=== PATIENT | female | born 1980 | race Caucasian/White ===

== ENCOUNTER 2023-09-27 09:11 | Outpatient (CLI) | payer OTHER, SELFPAY | END 2023-09-27 09:12 | disposition home or self-care (01) | LOC: NFLDREF 09:12 | PROVIDERS: PCP Family Medicine; Visit Provider Obstetrics & Gynecology | DX: R39.15 Urgency of urination (principal) | CPT/HCPCS: 87086 ==

== ENCOUNTER 2024-04-22 08:45 | Inpatient (IN) | payer BC, SELFPAY ==
[2024-04-22] VITALS (18 sets, daily range): BP systolic 118–161; BP diastolic 62–97; PULSE 51–71; RESP 16–24; TEMP 36.5–37.3; O2SAT 92–99; BMI 42.4
[2024-04-22 09:23] LABS: Ur HCG Qualitative* Negative (Negative)
[2024-04-22] MEDS: LACTATED RINGERS 1000 ML 1,000 ML 100 ML IV ×2 (09:35→13:48)
[2024-04-22] MEDS: SODIUM CHLORIDE 0.9 % (FLUSH) 10 ML SYRINGE IVF (09:35)
[2024-04-22] MEDS: PHENAZOPYRIDINE HCL 200 MG TABLET PO (09:55)
[2024-04-22 10:12] LABS: Creatinine* 0.5 mg/dL (0.5-1.5); Est. Creatinine Clearance* 135.81; Estimated Glomerular Filt Rate 119 ml/min
[2024-04-22] MEDS: CEFAZOLIN 1 GM inj 3 GM IVP (11:32)
--- NOTE | 2024-04-22 11:46 | W.PM.NB ---
Nerve Block Nerve Block Time Seen by Provider: 11:11 Date Seen: 04/22/24 Type of block requested by surgeon for post-operative analgesia: TAP Side: bilateral Time out performed: Yes Verification of patient name: Yes Verification of date of : Yes Site marking: site marked Name of person performing procedure: David Continuous monitoring Was continuous monitoring of O2 sat, B/P, cardiac exercise specialist, recorded every 15 minutes?: Yes Procedure Checklist: sterile prep, needles and gloves Ultrasound guided. Images saved: Yes Medications given in 5ml increments after negative aspiration: Marcaine %: 0.25 mL: 30 Needle gauge: 20 and Exparel mL: 10 Patient tolerated procedure well: Yes Additional comments: Needle noted between internal oblique and transversus abdominus. Local spread visualized Block Charges Block Charge (with Pro Fee): TAP Bilateral Use of Ultrasound Machine for Block: Yes- US Guidance/pain block
[2024-04-22] MEDS: VASOPRESSIN 20 UNIT/ML INJ INJECTION (12:33)
[2024-04-22 13:27] LABS: Hemoglobin* 13.7 gm/dL (12.0-16.0)
--- NOTE | 2024-04-22 14:50 | P.GYNPRC_ITS ---
Procedure Note Date of procedure: 04/22/24 Will [facility] bill your pro fee for this procedure?: Yes Procedure Description: PREOPERATIVE DIAGNOSIS: Abnormal uterine bleeding, obesity, myomatous uterus POSTOPERATIVE DIAGNOSIS: Same PROCEDURE: Total abdominal hysterectomy, lysis of adhesions, bilateral salpingectomies, diagnostic cystoscopy SURGEON: Dr. Mulligan [employer]ILD[employer] ATTENDANT: Dr. Ramos ANESTHESIA: General endotracheal COMPLICATIONS: None ESTIMATED BLOOD LOSS: See operative report by Dr. Mulligan FINDINGS: Enlarged myomatous uterus, weight 822 g. PROCEDURE NOTE: Please see the operative report by Dr. Mulligan for full details of the procedure. I was asked to assist. I was scrubbed in for the entire procedure until closure of the abdominal incision. I provided assistance with the laparotomy, lysis of adhesions, visualization and retraction, and with the hysterectomy and bilateral salpingectomies from the right side, as well as with hemostasis and closure of the vaginal cuff.
--- NOTE | 2024-04-22 15:08 | W.ANESCHARGE ---
Anesthesia Charges Start Date/Time Anesthesia Start Date: 04/22/24 Anesthesia Start Time: 11:01 Stop Date/Time Anesthesia Stop Date: 04/22/24 Anesthesia Stop Time: 15:02
[2024-04-22] MEDS: MEPERIDINE 25 MG/ML INJ 12.5 MG IVP (15:16)
--- NOTE | 2024-04-22 15:17 | W.ANESCHARGE ---
Anesthesia Charges Start Date/Time Anesthesia Start Date: 04/22/24 Anesthesia Start Time: 11:01 Stop Date/Time Anesthesia Stop Date: 04/22/24 Anesthesia Stop Time: 15:02
[2024-04-22] MEDS: LACTATED RINGERS 1000 ML 1,000 ML 30 ML IV (15:26)
--- NOTE | 2024-04-22 15:35 | W.PM.GYNPROC ---
Procedure Note Time Seen by Provider: 14:30 Date of procedure: 04/22/24 Will [facility] bill your pro fee for this procedure?: Yes Pre-op diagnosis: Fibroid uterus Abnormal Uterine Bleeding Procedure: Total Abdominal Hysterectomy Bilateral salpingectomy Lysis of adhesions Diagnostic cystoscopy Anesthesia: GETA Complications: None Surgeon: Shaila Mulligan MD Spinner Hydraulic: Malinda Ramos Estimated blood loss (mL): 150 IV fluids (mL): 1,900 Urine Output (mL): 300 Pathology: specimen obtained, sent to pathology Condition: stable Disposition: floor Findings: Enlarged, bulky, fibroid uterus Adhesion between rectus fascia, rectus muscles, peritoneum and omentum Adhesive disease between left adnexa and sigmoid colon Diffuse and dense adhesion between the bladder and anterior uterine body Unremarkable bilateral adnexa Procedure Description: After obtaining informed consent, the patient was taken to the operating room where general anesthesia was obtained without difficulty. She was prepared and draped in the normal sterile fashion in the dorsal supine position. A Jordan catheter was inserted sterilely into the bladder. A Pfannenstiel skin incision was made with a scalpel via prior incision. This incision was carried down to the underlying layer of fascia with the Bovie and blunt dissection. Thick adhesion was noted at the midline, where the fascia was incised right left of the midline and extended laterally. Due to dense adhesion at the midline, we entered the peritoneal cavity by elevating the peritoneum and sharply incising. After entering the peritoneal cavity, digital sweep was performed with small omental adhesion noted to anterior abdominal wall. This was taken down with electrocautery, where hemostasis was assured. Once the anterior abdominal wall was cleared, the fascial incision was continued to the patient's right side in layers. The superior fascial incision was grasped with Sukh clamps and the underlying rectus muscle was dissected off with combination of sharp, electrocautery and blunt dissection. The left rectus abdominis muscles were noted to be thin and disrupted but hemostatic. The inferior aspect of the fascia incision was then grasped and elevated, where underlying muscles and perineum were noted to again be adhesed. Combination of blunt and sharp dissection allowed for these to be taken down, making care to avoid the bladder. The bowels were packed cephalad using a large moistened laparotomy sponge. The Santhosh O retractor was placed in the incision. This provided excellent visualization of the pelvis. The pelvis was inspected with the findings noted above. Due to enlarged uterus with adhesions between the uterus and bladder, we started with the adnexa with the uterus in situ. Thin adhesions were noted between the sigmoid colon and left adnexa. These adhesions were freed with sharp and gentle blunt dissection. The left fallopian tube was subsequently grasped with a Elias and serially ligated and transected with Ligasure from the distal to proximal end. The left round ligament was grasped and elevated with a Sukh. Round was secured and transected with ligasure. The anterior and posterior leaf of the broad ligament were opened, where a bladder flap was developed anteriorly from the left to about the midline uterus. Dense adhesions were noted between the bladder and uterus at this location. Attention was then turned to the right, where the same procedure was performed with right salpingectomy then transection of the round ligament. The bilateral uteroovarian ligaments could be visualized, where they were ligated and transected with LigaSure. Care was made to avoid the ovarian vessels bilaterally. Due to enlarged uterus and large left fibroid, the patient's anatomy was significantly distorted. The left uterine vessels were isolated, and clamped with 2 curved Antoni clamps then cut. Antoni stitch was utilized to ligate the left uterine vessels, hemostasis was observed. The uterus was attempted to be exteriorized to allow for further development of the bladder flap and to secure the right cardinal ligament but was unable to be completed due to size of uterus. As such, decision was made to proceed with myomectomy. Dilute vasopressin (20u in 100mL) was injected to a total of 20mL (4u) and incision was made along uterine serosa. The fibroid capsule was idenfied and fibroid grasped with perforating towel clamps. A combination and electrocautery and blunt dissection was utilized to circumferentially free the left-sided fibroid. This was ultimately removed and was noted to be approximately [id number] in size. Running/locking stitch was then applied across the uterine incision to reapproximate normal anatomy. The uterus could then be exteriorized to continue hysterectomy. The bladder was backfilled with 300mL of sterile formula. No cystotomy was noted. The distended bladder allowed for identification of the vesicouterine reflection, where the bladder was thought to be distal to the dense adhesions at the midline. Ultimately, Metzenbaum scissors and traction of the uterus and bladder were utilized to sharply take down the bladder clamp to below the level of planned vaginotomy. No sterile milk was noted intraoperatively. The right uterine vessels were subsequently grasped with 2 curved Antoni clamps then cut. Antoni stitch with 0 vicryl was utilized to secure vessel, hemostasis was noted. Straight Antoni clamps was then placed lateral to the cervix to below site of planned vaginotomy, cut and ligated with Antoni stitch with 0 vicryl. Two bites were needed to accomplish this on both sides. Excellent hemostasis was again noted. Two curved Antoni clamps were placed across the vaginal cuff angles. The uterus with attached cervix was then transected and passed off the field. The vaginal cuff angles were fixed with Antoni stitches of 0 Vicryl. The intervening vaginal cuff was closed with [id number] sutures of 0 Vicryl. Diagnostic cystoscopy was then performed, where complete bladder survey was negative and bilateral ureteral efflux was noted. The abdomen and pelvis were then copiously irrigated. Small bleeding vessels were isolated with DeBakey clamps and cauterized for hemostasis. An additional figure of eight was applied at the left vaginal cuff margin. Excellent hemostasis was noted. Ciara was placed across the bladder flap and over raw tissue edges for additional hemostasis. All laparotomy sponges and instruments were then removed. Santhosh was removed. Hemostasis was again confirmed. The subfascial tissues and musculature were carefully inspected and hemostasis assured. The fascia was reapproximated in a running fashion with a looped 0 PDS suture. The subcutaneous tissues were copiously irrigated and hemostasis assured. The subcutaneous adipose layer was reapproximated with interrupted suture with running 2-0 vicryl in two layers. The skin was closed in a subcuticular fashion with 3-0 Monocryl. Silver dressing was applied. The patient tolerated the procedure well. Sponge, lap, needle, instrument counts were reported as correct x2. The patient was taken to recovery room awake and in stable condition. She received 3 g of IV Ancef preoperatively. Surgical debrief was completed. The uterus was weighed at the conclusion of the procedure, weight was 822g. PATHOLOGY SPECIMEN(S): Uterus (and separate fibroid), cervix, bilateral fallopian tubes Time spent operating 3.5 hours
[2024-04-22] MEDS: ONDANSETRON 2 MG/ML inj 4 MG IVP (17:43)
[2024-04-22] MEDS: HYDROmorphone 0.5 mg/0.5 ml inj 0.2 MG IVP ×2 (17:44→19:19)
[2024-04-22] MEDS: OXYCODONE 5 MG TABLET PO ×2 (17:44→21:46)
--- NOTE | 2024-04-22 20:06 | PC.NURSE ---
shift note: pt from pacu @ 1530 via bed. pt sleepy. complexion pale. post op vss intiitated. pt medicated for nausa and 08/13 lower back/abd pain.. lower abd drsg c/d/i. No drainage on alberto pad. sampson patent. IV patent.
[2024-04-22] MEDS: KETOROLAC 30 MG/ML inj IVP (20:22)
[2024-04-22] MEDS: ENOXAPARIN 40 MG/0.4 ML INJ SUBCUT (21:46)
[2024-04-22] MEDS: ACETAMINOPHEN 325 MG TABLET 650 MG PO (21:47)
--- NOTE | 2024-04-22 23:25 | PC.NURSE ---
End of shift note [id number]: Pt alert & oriented x 4 and able to make needs known. IV in place to R wrist with LR running at 75 mL/hr. Jordan catheter remains in place with dark ivy urine noted with blood-tinged urine also noted in catheter tubing. Abdominal dressing noted to be C/D/I. She is transferring/ambulating in room with SBA using FWW and gait belt. SCDs worn to BLEs. No N/V noted as pt is tolerating po food of applesauce and pudding along with po fluids. PRN Oxycodone and Tylenol administered for report of 5/10 abdominal pain when asked. Pt has also been having intermittent ice pack to area.
[2024-04-23 02:38] VITALS: BP 129/66; PULSE 54; RESP 18; TEMP 37.4; O2SAT 96
[2024-04-23] MEDS: KETOROLAC 30 MG/ML inj IVP (02:40)
[2024-04-23] MEDS: LACTATED RINGERS 1000 ML 1,000 ML 75 ML IV (05:56)
[2024-04-23 06:57] LABS: Hemoglobin* 11.5 gm/dL (12.0-16.0)
--- NOTE | 2024-04-23 06:58 | PC.NURSE ---
Pt is alert and oriented x3. Afebrile. Pt reports 3-5/10 pain at Opsite and lower back, pain managed with scheduled medication. Pt's abdominal dressing is CDI. Pt's sampson catheter is patent and draining. Pt is up ad ya in room and tolerating reg diet. Pt slept intermittently throughout night.??
[2024-04-23 07:00] VITALS: BP 133/74; PULSE 54; PULSE 55; RESP 18; TEMP 37.1; O2SAT 98
[2024-04-23] MEDS: IBUPROFEN 600 MG TABLET PO ×3 (07:27→21:41)
[2024-04-23] MEDS: OXYCODONE 5 MG TABLET PO ×3 (07:57→23:56)
--- NOTE | 2024-04-23 07:58 | PM.GYNPNPO ---
MULTIPLE LAUNCH ROCKET SYSTEM CREWMEMBER - A/P Assessment and plan (1) Fibroid uterus: Status: Acute Plan Ms. Arzate is a 43-year-old seen on postop day 1 from [facility], bilateral salpingectomy, lysis of adhesions and cystoscopy for symptomatic fibroid uterus. Her postoperative course has been unremarkable. Postop hemoglobin within normal limits at 11.5. Vital signs within normal limits, adequate urine output. Benign abdominal exam. She continues to work on postoperative milestones, where we were working on pain management, Jordan removal, p.o. intake and ongoing ambulation. VTE prophylaxis with Lovenox 40 mg b.i.d. in the setting of major/open abdominal surgery with obesity. Disposition: Anticipate that she will remain inpatient today, with likely dismissal to home tomorrow. Postoperative Procedures: Procedures Operation Date: 04/22/24 10:00 Actual Procedure Side Surgeon p Total Abdominal Hysterectomy, Bilateral Salpingectomy, Lysis of adhesions, Cystoscopy Loraine Mulligan MD Time Spent With Patient Time: Total time spent is greater than 50% in coordination of care (as documented) at patient's floor/unit and/or counseling patient: Time with patient: less than 15 minutes MULTIPLE LAUNCH ROCKET SYSTEM CREWMEMBER- PN:Subj Post-Op Subjective Time Seen by Provider: 07:45 Date Seen: 04/23/24 Interval history: Ms. Arzate is a 43-year-old seen on postop day 1 from a total abdominal hysterectomy, bilateral salpingectomy, lysis of adhesions and diagnostic cystoscopy. Surgery was completed for symptomatic fibroid uterus. Her surgery was uncomplicated. This morning, Rosette notes that last night was challenging. Initially, she had severe back pain but ultimately notes that her pain management was under fairly good control starting at 2030. She continues to have some lower abdominal pain and cramping, improved with pain medications and heating pad. She notes she only slept sporadically overnight. She is tolerating p.o. intake in small volumes (putting, applesauce) and liquids without nausea or vomiting. She has been up to ambulate twice, denies dizziness or lightheadedness. Denies vaginal bleeding. Jordan catheter in place, plan to be removed this morning. Denies lower extremity swelling, redness, chest pain or dyspnea. MULTIPLE LAUNCH ROCKET SYSTEM CREWMEMBER-PN: Obj Exam Physical Exam: Vital signs: Temp Pulse Resp BP Pulse Ox O2 Del Method 98.8 F 55 L 18 133/74 98 Room Air 04/23/24 07:00 04/23/24 07:00 04/23/24 07:00 04/23/24 07:00 04/23/24 07:00 04/23/24 07:00 Narrative: General: Alert and oriented, in no acute distress Abdomen: Soft, nondistended. Tender to palpation greatest in the lower abdominal quadrants consistent with postoperative state. No rebound or guarding. Silver dressing is in place, plan to remove this on postop day 7. Extremities: Nontender and non erythematous. SCDs in place. Urinary Catheter Management: Urethral: Cath placed during this visit: yes Urethral indwelling: Yes Reason for continuing: decision to DC catheter Insertion date: 04/22/24 Insertion time: 11:30 MULTIPLE LAUNCH ROCKET SYSTEM CREWMEMBER - PN: Obj Data Labs Labs: Laboratory Results - last 24 hr 04/22/24 04/22/24 04/23/24 08:57 09:30 06:39 Hgb 13.7 11.5 L Creatinine 0.5 Estimated Creat Clear 135.81 Estimated GFR 119 Urine HCG, Qual Negative Blood Type O Positive Antibody Screen NEGATIVE
[2024-04-23 11:00] VITALS: BP 120/49; PULSE 55; RESP 18; TEMP 37.1; O2SAT 99
[2024-04-23] MEDS: ACETAMINOPHEN 325 MG TABLET 650 MG PO ×2 (12:04→23:57)
[2024-04-23] MEDS: ENOXAPARIN 40 MG/0.4 ML INJ SUBCUT ×2 (12:07→21:41)
[2024-04-23 14:59] VITALS: BP 133/65; PULSE 60; RESP 27; TEMP 36.9; O2SAT 96
--- NOTE | 2024-04-23 16:49 | PC.NURSE ---
Nursing Care Hours: [id number] Pt this shift calm and cooperative, alert and oriented. Jordan pulled in morning and pt is voiding, bladder scan shows 15ml post void. Ambulated huerta x1 with teletypewriter installer, tolerated well and is up ad/ya rest of shift. BS hypoactive, denies passing gas. Tolerating regular diet. Pain rated 5-6/10 with pain meds and ice pack. Saline locked with adequate PO intake. Denies SOB, chest pain, or nausea.
--- NOTE | 2024-04-23 20:07 | PC.NURSE ---
End of shift [id number] - RN took over care at approximately 1500. Alert, oriented, cooperative and pleasant. Pt up independently in room and observed to walk halls. Family at bedside, tolerating RA and regular diet/fluids. Able to void independently during shift. Pt reporting pain in abdomen as 6/10, medication given per MAR to improve pt comfort. Ice pack on surgical site, dressing CDI. Pt appears to be resting comfortably at end of shift.
[2024-04-23 21:38] VITALS: BP 144/64; PULSE 75; RESP 26; TEMP 37.5; O2SAT 97
[2024-04-23] MEDS: SIMETHICONE 80 MG TAB.CHEW 160 MG PO (23:58)
[2024-04-23 23:59] VITALS: BP 148/71; PULSE 81; RESP 22; TEMP 36.9; O2SAT 98
[2024-04-24] MEDS: IBUPROFEN 600 MG TABLET PO ×2 (04:15→10:08)
[2024-04-24 04:18] VITALS: BP 146/80; PULSE 79; RESP 20; TEMP 36.7; O2SAT 97
[2024-04-24 07:00] VITALS: BP 133/65; PULSE 71; RESP 16; TEMP 36.9; O2SAT 98
--- NOTE | 2024-04-24 07:35 | PC.NURSE ---
Pt is alert and oriented x3. Afebrile. Pt reports 3-8/10 pain at Opsite and lower back, pain managed with PRN medication. Pt?s abdominal dressing is CDI. Pt is up ad ya in room, tolerating a regular diet, and voiding. Pt reported having gas pains gave PRN Simethicone with relief. ?
--- NOTE | 2024-04-24 07:42 | P.DS_ITS ---
DS: Providers Provider Time Seen by Provider: 07:42 Date Seen: 04/24/24 Date of admission: 04/22/24 08:45 Primary care physician: Gala Jewell MD Admitting Clinician: Loraine Mulligan MD Attending Physician on discharge: Loraine Mulligan MD ASSEMBLER [employer]ILD[employer]-Discharge Summary Hospital Course Hospital Course Narrative: Patient is a 43 year old admitted on 04/22/24 for postoperative care following total abdominal hysterectomy, bilateral salpingectomy, lysis of adhesions and diagnostic cystoscopy. Indication for surgery: Fibroid uterus, abnormal uterine bleeding. Intraoperative findings were notable for enlarged bulky fibroid uterus and adhesive disease, please see operative note for complete details. She had an uncomplicated surgery. Postoperative course has been uneventful. Vitals have been stable. She has remained afebrile. Today, on postoperative day 2, she reports the pain is well controlled on NSAIDs, Tylenol and oxycodone 5 mg sparingly. She has been able to ambulate without dizziness or lightheadedness. She is tolerating regular diet without nausea or vomiting. She is passing flatus and had a bowel movement this morning. Jordan catheter has been removed, and she is voiding without difficulty. Denies vaginal bleeding. No calf pain, erythema, swelling, shortness of breath or chest pain. Time Spent with Patient Time attestation: Total time spent providing and/or coordinating discharge services: Time spent: Less than 30 minutes ASSEMBLER [employer]ILD[employer] - Exam Physical Exam: Vital signs: Temp Pulse Resp BP Pulse Ox O2 Del Method 98.1 F 79 20 146/80 H 97 Room Air 04/24/24 04:18 04/24/24 04:18 04/24/24 04:18 04/24/24 04:18 04/24/24 04:18 04/24/24 04:18 Narrative: General: Alert and oriented, no acute distress Abdomen: Soft, nondistended. Minimally tender to palpation in the lower quadrant, consistent with postoperative state. No rebound or guarding. Ecchymosis is noted superior to silver dressing. Dressing is clean and dry, plan to remove on postop day 7. Extremities: No calf erythema or tenderness. SCDs in place. ASSEMBLER [employer]ILD[employer] - DS: Data Procedures Procedures: Procedures Operation Date: 04/22/24 10:00 Actual Procedure Side Surgeon p Total Abdominal Hysterectomy, Bilateral Salpingectomy, Lysis of adhesions, Cystoscopy Loraine Mulligan MD Discharge Plan Discharge Disposition: Home, Self-Care Date of Admission: 04/22/24 08:45 Primary Care Provider: Gala Jewell Condition: Stable Anticipated Discharge Date/Time: 04/24/24 07:45 Discharge Medications: New oxycodone 5 mg Tablet 5 mg PO Q4H PRN (Reason: Moderate Pain) Qty: 12 0RF Continued chlorthalidone 15 mg tablet 5 mg PO QDAY albuterol sulfate 90 mcg/actuation HFA aerosol inhaler 1 - 2 puff INHALATION Q4H PRN (Reason: wheezing) Discontinued Mirena 21 mcg/24 hours (8 yrs) 52 mg intrauterine device 1 device intrauterine ONCE Patient Comments: Placed on 11/29/23. Exp: 11/2031 Rx Instructions: as a single dose Discharge Orders: Discharge Order (Routine); Ordered 04/24/24 Ordered By: Loraine Mulligan Additional Instructions: Lifting restrictions: Please do not lift more than 20lbs for 6 weeks Sexual restriction: Pelvic rest for 6 weeks Pain control: Over the counter Motrin 600 mg by mouth every six hours on a full stomach for pain as needed Over the counter Acetaminophen 1000 mg by mouth every six hours on a full stomach for pain as needed Oxycodone 5mg every 4 hours as needed for breakthrough pain Please call with: - Heavy vaginal bleeding - Increasing or severe abdominal pain - Fevers/chills - Inability to tolerate solid/liquids by mouth, recurrent nausea/vomiting - Incision redness/drainage - Signs or symptoms of a blood clot - calf pain, redness, swelling, chest pain or shortness of breath Follow Up Appointments: Gala Jewell MD [Primary Care Provider] - Forms: [email or web address] Info Instructions
--- NOTE | 2024-04-24 10:44 | PC.NURSE ---
Discharge: Patient pleasant and cooperative, A&O. VSS, afebrile. Patient reports pain on her abdomen this shift, rating a 4, managed with scheduled ibuprofen. Dressing on abdomen C/D/I. Patient was walking independently. IV removed with tip intact. Discharge instructions provided, all questions answered.
== END 2024-04-24 10:25 | disposition home or self-care (01) | DRG 513 ==
PROVIDERS: Admitting Provider Obstetrics & Gynecology; PCP Family Medicine; Visit Provider Obstetrics & Gynecology
PROC: 0UT94ZZ Resection of Uterus, Percutaneous Endoscopic Approach (ICD-10-PCS; CPT 52000; principal; 2024-04-22 10:00)
DX: N93.8 Other specified abnormal uterine and vaginal bleeding (principal); K66.0 Peritoneal adhesions (postprocedural) (postinfection); G89.18 Other acute postprocedural pain; E66.9 Obesity, unspecified; Z68.41 Body mass index [BMI] 40.0-44.9, adult; D25.1 Intramural leiomyoma of uterus; D25.2 Subserosal leiomyoma of uterus
CPT/HCPCS: 00840; 36415; 64488; 76942; 81025; 82565; 85018; 86850; 86900; 86901; 88307; A9270; C9290; J0665; J0690; J1100; J1170; J1630; J1650; J1885; J2175; J2405; J2704; J2710; J3010; J3490; J7120

== ENCOUNTER 2025-08-13 14:45 | Outpatient (RCR) | payer BC, SELFPAY | END 2025-08-30 14:40 | disposition home or self-care (01) | PROVIDERS: PCP Family Medicine; Visit Provider Family Medicine | DX: M54.16 Radiculopathy, lumbar region (principal); M51.34 Other intervertebral disc degeneration, thoracic region; M47.816 Spondylosis without myelopathy or radiculopathy, lumbar region; Z51.89 Encounter for other specified aftercare | CPT/HCPCS: 97110; 97112; 97161 ==